=== PATIENT | male | born 1985 | race African-American/Black ===

== ENCOUNTER → 2020-03-25 | Outpatient (CLI) | payer BC | END | disposition home or self-care (01) | LOC: LABWHC1 08:23 | PROVIDERS: ATTEND Internal Medicine | DX: R51 Headache (principal); R19.7 Diarrhea, unspecified; R53.83 Other fatigue | CPT/HCPCS: 87635 ==

== ENCOUNTER → 2020-10-12 | Outpatient (CLI) | payer BC ==
--- NOTE | 2020-10-12 16:27 | US ---
EXAMINATION TYPE: US abdomen complete DATE OF EXAM: 10/12/2020 COMPARISON: NONE CLINICAL HISTORY: R10.11 RUQ pain. RUQ pain x 10 months EXAM MEASUREMENTS: Liver Length: 13.6 cm Gallbladder Wall: 0.2 cm CBD: 0.4 cm Spleen: 8.4 cm Right Kidney: 10.9 x 6.8 x 5.1 cm Left Kidney: 9.5 x 4.8 x 6.7 cm Pancreas: limited views appear wnl Liver: intercostal imaging only due to bowel gas, wnl Gallbladder: mobile debris seen within neck supine that did move when rolled patient LLD, small ston es and sludge Evidence for sonographic Carrero's sign: YES CBD: wnl Spleen: limited views due to gas and high placement within ribcage Right Kidney: wnl Left Kidney: wnl Upper IVC: wnl Abd Aorta: wnl IMPRESSION: 1. Mobile debris within the gallbladder.
== END | disposition home or self-care (01) ==
LOC: RADUSWWP 09:30
PROVIDERS: ATTEND Internal Medicine
DX: R93.3 Abnormal findings on diagnostic imaging of other parts of digestive tract (principal)
CPT/HCPCS: 76700

== ENCOUNTER → 2020-10-20 | Outpatient (CLI) | payer BC | END | disposition home or self-care (01) | LOC: LABWHC1 14:32 | PROVIDERS: ATTEND Student in an Organized Health Care Education/Training Program | DX: Z01.818 Encounter for other preprocedural examination (principal); Z20.828 Contact with and (suspected) exposure to other viral communicable diseases | CPT/HCPCS: U0003; C9803 ==

== ENCOUNTER 2020-10-26 09:22 | Day surgery (SDC) | payer BC ==
[2020-10-22 15:54] VITALS: BMI 30.5
[~2020-10-26 09:22] MED LIST: DEXAMETHASONE SOD PHOSPHATE 4 MG/ML 1 ML VIAL IV ONE; HEPARIN SODIUM,PORCINE 5,000 UNIT/ML 1 ML VIAL SQ PRN; LACTATED RINGERS 1,000 ML IV SCH; LIDOCAINE 1% (10MG/ML) FOR IV START INTRADERMA PRN; ONDANSETRON 4 MG/2 ML VIAL IVP ONE; SCOPOLAMINE 1.5MG/72HR PATCH TRANSDERM ONE
[2020-10-26] MEDS ORDERED: MIDAZOLAM 2 MG/2 ML VIAL IVP ONE (10:43)
[2020-10-26] MEDS ORDERED: PROPOFOL 10 MG/ML 20 ML VIAL IV ONE (11:36)
[2020-10-26] MEDS ORDERED: ROCURONIUM 10 MG/ML (10 ML VIAL) IV ONE (11:36)
[2020-10-26] MEDS ORDERED: fentaNYL (PF) 50 MCG/ML 2 ML AMP ONE (11:36)
[2020-10-26] MEDS ORDERED: MIDAZOLAM 2 MG/2 ML VIAL ONE (11:36)
[2020-10-26] MEDS ORDERED: KETOROLAC 15 MG/ML 1 ML VIAL ONE (11:36)
[2020-10-26] MEDS ORDERED: NEOSTIGMINE 1 MG/ML 10 ML VIAL ONE (11:36)
[2020-10-26] MEDS ORDERED: HYDROmorphone (PF) 1 MG/ML ONE (11:36)
[2020-10-26] MEDS ORDERED: SUCCINYLCHOLINE CHLORIDE 100 MG/5 ML SYR IV ONE (11:36)
[2020-10-26] MEDS ORDERED: GLYCOPYRROLATE 0.2 MG/ML 2 ML VIAL ONE (11:36)
[2020-10-26] MEDS ORDERED: LIDOCAINE 2%-EPI 1:100,000 20 ML VIAL SQ ONE ×2 (12:00)
[2020-10-26] MEDS ORDERED: LACTATED RINGERS 1,000 ML IV ONE (12:36)
[2020-10-26 13:10] VITALS: TEMP 97.3
[2020-10-26] MEDS: HYDROmorphone 0.5 MG/0.5 ML SYRINGE IVP PRN ×4 (13:13→13:41)
[2020-10-26 13:20] VITALS: RESP 16
--- NOTE | 2020-10-26 13:20 | P.OP ---
Date of Procedure: 10/26/20 Preoperative Diagnosis: Symptomatic cholelithiasis Postoperative Diagnosis: Symptomatically cholelithiasis and a duodenal mass Procedure(s) Performed: Laparoscopic cholecystectomy with biopsy of duodenal mass Anesthesia: KENTRELL Surgeon: Meño Malin Estimated Blood Loss (ml): 5 Condition: stable Disposition: PACU Description of Procedure: Patient is brought to the operative suite remained in the supine position underwent general endotracheal anesthesia per Department of anesthesia prepped and draped in usual sterile fashion timeout performed correct patient correct procedure correct site was verified. 2 cm incision was made supraumbilical carried down the fascia which was incised under direct visualization the abdomen was entered and insufflated no injuries were noted 3 separate 5 mm ports were placed in the right upper quadrant under direct visualization. Patient was placed in reverse Trendelenburg right side up and the gallbladder was grasped and retracted cephalad at this time there was a 2 cm fungating mass noted on the anterior surface of the duodenum right at D1-D2 junction. Using a laparoscopic biopsy forceps multiple biopsies were taken and sent to pathology the gallbladder was then approached the cystic duct and cystic artery were skeletonized duly clipped and ligated after critical view was obtained. The gallbladder was removed from the liver bed using Bovie electrocautery and removed through the periumbilical port site with an Endo Catch bag. The gallbladder fossa was irrigated and suctioned hemostasis was noted the periumbilical port site fascia was closed with 0 Vicryl suture with the aid of a Maurilio-Bro suture passer. All ports removed under direct visualization the abdomen was desufflated. Skin was closed with 4-0 Monocryl subcuticular stitches and skin glue patient tolerated the procedure well there are no apparent complications we'll await further biopsy results and follow-up in my office regarding this. Plan - Discharge Summary Discharge Rx Participant: Yes New Discharge Prescriptions: No Action Omeprazole Magnesium 40 mg PO DAILY Discharge Medication List Omeprazole Magnesium 40 mg PO DAILY 10/22/20 [History]
[2020-10-26] MEDS ORDERED: diphenhydrAMINE 50 MG/ML 1 ML VIAL IVP ONE (13:29)
[2020-10-26] MEDS ORDERED: HYDROcodone/APAP 5-325MG 1 EACH TAB ONE (14:37)
[2020-10-26] MEDS ORDERED: HYDROcodone/APAP 5-325MG 1 EACH TAB PO ONE (14:38)
[2020-10-26 15:14] VITALS: BP 127/78; PULSE 69
== END 2020-10-26 15:49 | disposition home or self-care (01) ==
LOC: OR 09:22
PROVIDERS: ATTEND Student in an Organized Health Care Education/Training Program
DX: K81.1 Chronic cholecystitis (principal); D13.2 Benign neoplasm of duodenum; K21.9 Gastro-esophageal reflux disease without esophagitis; Z79.899 Other long term (current) drug therapy; Z80.42 Family history of malignant neoplasm of prostate; Z80.8 Family history of malignant neoplasm of other organs or systems; Z83.3 Family history of diabetes mellitus
CPT/HCPCS: 88304; 88305; 47562; 44238; J2250; J1200; J1644; J1100; J2710; J0690; J2405; J3010; J1170 ×2; J1885; J0330; J2704

== ENCOUNTER → 2020-11-09 | Outpatient (CLI) | payer BC ==
--- NOTE | 2020-11-09 09:04 | CT ---
EXAMINATION TYPE: CT abdomen w con DATE OF EXAM: 11/09/2020 COMPARISON: Correlation ultrasound 10/12/2020 HISTORY: 35-year-old male K86.8 Pancreatic mass TECHNIQUE: Contiguous axial scanning of the abdomen following administration of 100 ml Isovue 300 IV contrast. Delayed images through the kidneys and coronal/sagittal reconstructions performed. CT DLP: 706.00 mGycm Automated exposure control for dose reduction was used. FINDINGS: Heart normal size without pericardial effusion. Lung bases clear without pleural effusion. No focal liver lesion or biliary ductal dilatation. Portal venous system is patent. Cholecystectomy clips. Adrenal glands, kidneys, and spleen appear within normal limits. No discrete pancreatic mass is identified. No dilated small bowel, free fluid, or free air. A small cluster of nonspecific, prominent but nonenl arged right lower quadrant mesenteric lymph nodes measure up to 6 mm. Otherwise, no mesenteric or ret roperitoneal lymphadenopathy. Mild overall stool burden. No pericolonic inflammatory change. Pelvis is not imaged. Bones: No osseous destructive process. IMPRESSION: 1. STATUS POST CHOLECYSTECTOMY. 2. NO DISCRETE ABNORMALITY OF THE PANCREAS IS IDENTIFIED AT THIS TIME.
== END | disposition home or self-care (01) ==
LOC: RADCTMAIN 07:41
PROVIDERS: ATTEND Student in an Organized Health Care Education/Training Program
DX: K86.89 Other specified diseases of pancreas (principal); Z90.49 Acquired absence of other specified parts of digestive tract
CPT/HCPCS: 74160; Q9967

== ENCOUNTER 2021-08-23 10:57 | Emergency (ER) | payer BC ==
[2021-08-23 11:21] VITALS: TEMP 97.9
[2021-08-23] MEDS ORDERED: MAG HYDROX/AL HYDROX/SIMETH 30 ML, HYOSCYAMINE ELIXIR 10 ML, LIDOCAINE VISCOUS 2% 10 ML PO STA ×3 (11:49)
[2021-08-23 12:09] LABS: Appearance,Urine Clear (Clear); Bilirubin,Urine Negative (Negative); Blood,Urine Negative (Negative); Color,Urine Yellow; Glucose,Urine (UA) Negative (Negative); Ketones,Urine Negative (Negative); Leukocyte Esterase,Urine Negative (Negative); Nitrite,Urine Negative (Negative); Protein,Urine Negative (Negative); Specific Gravity,Urine 1.022 (1.001-1.035)
[2021-08-23 12:09] LABS: Basophils % (A) 0 %; Eosinophils # (A) 0.2 k/uL (0-0.7); Eosinophils % (A) 2 %; HCT 51.6 % (39.0-53.0); HGB 18.4 gm/dL (13.0-17.5); Lymphocytes # (A) 2.1 k/uL (1.0-4.8); Lymphocytes % (A) 29 %; MCH 28.7 pg (25.0-35.0); MCHC 35.7 g/dL (31.0-37.0); MCV 80.6 fL (80.0-100.0); Mean Platelet Volume 7.1; Monocytes # (A) 0.4 k/uL (0-1.0); Monocytes % (A) 5 %; Neutrophils # (A) 4.4 k/uL (1.3-7.7); Neutrophils % (A) 61 %; Platelet Count 306 k/uL (150-450); RDW 12.7 % (11.5-15.5); WBC 7.1 k/uL (3.8-10.6)
[2021-08-23 12:19] LABS: ALT 21 U/L (4-49); African American GFR (CKD) >90 (>60 ml/min/1.73 sqM); Anion Gap 9 mmol/L; Blood Urea Nitrogen 14 mg/dL (9-20); Calcium 10.1 mg/dL (8.4-10.2); Carbon Dioxide 23 mmol/L (22-30); Chloride 104 mmol/L (98-107); Glucose 89 mg/dL (74-99); Lipase 219 U/L (23-300); Non-African American GFR(CKD) >90 (>60 ml/min/1.73 sqM); Sodium 136 mmol/L (137-145); Total Bilirubin 1.7 mg/dL (0.2-1.3)
[2021-08-23 12:23] LABS: AST 39 U/L (17-59); Albumin 4.5 g/dL (3.5-5.0); Potassium 4.7 mmol/L (3.5-5.1); Total Protein 7.8 g/dL (6.3-8.2)
[2021-08-23 12:24] LABS: Alkaline Phosphatase 67 U/L (38-126)
--- NOTE | 2021-08-23 12:25 | ED ---
General Adult HPI - General Chief complaint: Abdominal Pain Stated complaint: med reaction Time Seen by Provider: 08/23/21 11:21 Source: patient, family Mode of arrival: ambulatory Limitations: no limitations - History of Present Illness Initial comments: Dictation was produced using [employer] dictation software. please excuse any grammatical, word or spelling errors. Chief Complaint: 36-year-old male presents with 1 abdominal pain and orange emesis, urine and stool History of Present Illness: 36-year-old male who has had 1 year of left-sided abdominal pain. Patient was diagnosed with H. pylori recently by his primary care doctor. He was placed on triple antibiotic therapy. Facial area.His urine and stool was orange in appearance. He had an episode of emesis with orange discoloration. Patient has had pain for approximately one year. He has seen surgeons and GI doctors with no apparent reason for her symptoms. His history of cholecystectomy. Glucose pain to his left upper quadrant. The ROS documented in this emergency department record has been reviewed and confirmed by me. Those systems with pertinent positive or negative responses have been documented in the HPI. All other systems are other negative and/or noncontributory. PHYSICAL EXAM: General Impression: Alert and oriented x3, not in acute distress HEENT: Normocephalic atraumatic, extra-ocular movements intact, pupils equal and reactive to light bilaterally, mucous membranes moist. Cardiovascular: Heart regular rate and rhythm Chest: Able to complete full sentences, no retractions, no tachypnea Abdomen: abdomen soft, non-tender, non-distended, no organomegaly Musculoskeletal: Pulses present and equal in all extremities, no peripheral edema Motor: no focal deficits noted Neurological: CN II-XII grossly intact, no focal motor or sensory deficits noted Skin: Intact with no visualized rashes Psych: Normal affect and mood ED course: 36-year-old male with chronic abdominal pain presents with orange urine, stool emesis. Vital signs upon arrival are within acceptable limits. Laboratory evaluation obtained. CBC, metabolic panel is unremarkable. Urinalysis is negative. Patient reevaluated at bedside at 1240. Upon being sta ble medical condition. Reports pain but is well-appearing. Distress.Reports that the pain that he is currently experiencing is the pain that has been having for the last 12months.. Patient's pain is chronic is given referral to GI doctor. Advised to continue taking antibiotics. Patient given referral to GI doctor. - Related Data Home Medications Medication Instructions Recorded Confirmed Omeprazole Magnesium [PriLOSEC] 40 mg PO DAILY 10/22/20 10/26/20 Previous Rx's Medication Instructions Recorded Docusate [Colace] 100 mg PO DAILY #10 capsule 10/26/20 HYDROcodone/APAP 5-325MG [Bivalve 1 tab PO Q4HR PRN 3 Days #18 tab 10/26/20 5-325] Allergies Allergy/AdvReac Type Severity Reaction Status Date / Time No Known Allergies Allergy Verified 08/23/21 11:22 Review of Systems ROS Statement: Those systems with pertinent positive or pertinent negative responses have been documented in the HPI. ROS Other: All systems not noted in ROS Statement are negative. Past Medical History Past Medical History: GERD/Reflux, Osteoarthritis (OA) Additional Past Medical History / Comment(s): MIGRAINE HEADACHE, History of Any Multi-Drug Resistant Organisms: None Reported Past Surgical History: No Surgical Hx Reported Additional Past Surgical History / Comment(s): COLONOSCOPY Past Anesthesia/Blood Transfusion Reactions: No Reported Reaction Past Psychological History: No Psychological Hx Reported Smoking Status: Never smoker Past Alcohol Use History: None Reported Past Drug Use History: None Reported - Past Family History Father Family Medical History: Cancer Additional Family Medical History / Comment(s): PROSTATE CANCER General Exam Limitations: no limitations Course Vital Signs 08/23/21 11:16 Temperature 97.9 F Pulse Rate 67 Respiratory 18 Rate Blood Pressure 131/79 Medical Decision Making - Lab Data Result diagrams: 08/23/21 11:52 08/23/21 11:52 Lab Results 08/23/21 08/23/21 08/23/21 Range/Units 11:52 11:52 11:53 WBC 7.1 (3.8-10.6) k/uL RBC 6.40 H (4.30-5.90) m/uL Hgb 18.4 H (13.0-17.5) gm/dL Hct 51.6 (39.0-53.0) % MCV 80.6 (80.0-100.0) fL MCH 28.7 (25.0-35.0) pg MCHC 35.7 (31.0-37.0) g/dL RDW 12.7 (11.5-15.5) % Plt Count 306 (150-450) k/uL MPV 7.1 Neutrophils % 61 % Lymphocytes % 29 % Monocytes % 5 % Eosinophils % 2 % Basophils % 0 % Neutrophils # 4.4 (1.3-7.7) k/uL Lymphocytes # 2.1 (1.0-4.8) k/uL Monocytes # 0.4 (0-1.0) k/uL Eosinophils # 0.2 (0-0.7) k/uL Basophils # 0.0 (0-0.2) k/uL Sodium 136 L (137-145) mmol/L Potassium 4.7 (3.5-5.1) mmol/L Chloride 104 (98-107) mmol/L Carbon Dioxide 23 (22-30) mmol/L Anion Gap 9 mmol/L BUN 14 (9-20) mg/dL Creatinine 1.02 (0.66-1.25) mg/dL Est GFR (CKD-EPI)AfAm >90 (>60 ml/min/1.73 sqM) Est GFR (CKD-EPI)NonAf >90 (>60 ml/min/1.73 sqM) Glucose 89 (74-99) mg/dL Calcium 10.1 (8.4-10.2) mg/dL Total Bilirubin 1.7 H (0.2-1.3) mg/dL AST 39 (17-59) U/L ALT 21 (4-49) U/L Alkaline Phosphatase 67 (38-126) U/L Total Protein 7.8 (6.3-8.2) g/dL Albumin 4.5 (3.5-5.0) g/dL Lipase 219 (23-300) U/L Urine Color Yellow Urine Appearance Clear (Clear) Urine pH 6.0 (5.0-8.0) Ur Specific [place] 1.022 (1.001-1.035) Urine Protein Negative (Negative) Urine Glucose (UA) Negative (Negative) Urine Ketones Negative (Negative) Urine Blood Negative (Negative) Urine Nitrite Negative (Negative) Urine Bilirubin Negative (Negative) Urine Urobilinogen 2.0 (<2.0) mg/dL Ur Leukocyte Esterase Negative (Negative) Disposition Clinical Impression: [place]-colored urine, Abdominal pain Disposition: HOME SELF-CARE Condition: Good Instructions (If sedation given, give patient instructions): Abdominal Pain (ED) Is patient prescribed a controlled substance at d/c from ED?: No Referrals: Carito Hampton MD [STAFF PHYSICIAN] - 1-2 days
[2021-08-23 12:55] VITALS: BP 138/81; PULSE 71; RESP 16
== END 2021-08-23 12:55 | disposition home or self-care (01) ==
LOC: EC 10:57
DX: R82.998 Other abnormal findings in urine (principal); G89.29 Other chronic pain; K21.9 Gastro-esophageal reflux disease without esophagitis; M19.90 Unspecified osteoarthritis, unspecified site; Z90.49 Acquired absence of other specified parts of digestive tract
CPT/HCPCS: 36415; 80053; 81003; 83690; 85025; 99284

== ENCOUNTER → 2022-08-04 | Outpatient (CLI) | payer BC | END | disposition home or self-care (01) | LOC: LABWHC1 15:16 | PROVIDERS: ATTEND Internal Medicine Gastroenterology | DX: A04.8 Other specified bacterial intestinal infections (principal); K52.9 Noninfective gastroenteritis and colitis, unspecified | CPT/HCPCS: 36415; 83516; 85652; 86140; 87338 ==

== ENCOUNTER → 2024-09-01 | Outpatient (CLI) | payer OTHER ==
--- NOTE | 2024-09-01 19:07 | CT ---
EXAMINATION TYPE: CT abdomen pelvis w con DATE OF EXAM: 09/01/2024 6:46 PM COMPARISON: CT abdomen pelvis most recent from 11/09/2022 CLINICAL INDICATION: Male, 39 years old with history of R10.9 ABD PAIN; Abdominal pain x7 years, had gallbladder removed around 4 years ago. TECHNIQUE: Axial CT abdomen pelvis w con;Sagittal and coronal reformats were created on a separate w orkstation. Contrast used:100 ml mL of Isovue 370 with IV Contrast, (none if empty) Oral contrast used: with Oral Contrast (none if empty) CT DLP: 1188.6 mGycm, Automated exposure control for dose reduction was used. FINDINGS: LOWER CHEST: Unremarkable ABDOMEN LIVER: Unremarkable GALLBLADDER AND BILE DUCTS: The gallbladder is surgically absent. PANCREAS: Unremarkable. SPLEEN: Unremarkable. ADRENAL GLANDS: Unremarkable. KIDNEYS AND URETERS: No evidence of hydronephrosis or renal calculus. The ureters are unremarkable. PELVIS BLADDER: No evidence for wall thickening or mass given limitations of exam. REPRODUCTIVE: Unremarkable. ABDOMEN & PELVIS STOMACH AND BOWEL: No evidence of bowel obstruction. Appendix is normal. Moderate amount stool throug hout colon. PERITONEUM/RETROPERITONEUM: No evidence of pneumoperitoneum or free fluid. VASCULATURE: No evidence of aortic aneurysm. MUSCULOSKELETAL: No acute osseous abnormalities LYMPH NODES: No gross evidence for lymphadenopathy. SOFT TISSUE/ABDOMINAL WALL: Unremarkable IMPRESSION: 1. No evidence for acute abdominal process. 2. No abnormal signal throughout the colon. [facility] Nickie Boles, , 09/01/2024 7:05 PM
== END | disposition home or self-care (01) ==
LOC: RADCTMAIN 16:59
PROVIDERS: ATTEND Internal Medicine
DX: Z90.49 Acquired absence of other specified parts of digestive tract (principal)
CPT/HCPCS: 74177